=== PATIENT | male | born 1950 ===

== ENCOUNTER 2023-05-07 17:01 | Inpatient (IN) | payer OTHER, SELFPAY ==
--- NOTE | ~2023-05-07 | CT_ITS ---
EXAMINATION: Head strike, confusion. TECHNIQUE: 5 mm thin axial and reformatted 2 mm thin sagittal and coronal images of brain were obtained. Subsequently axial 3 mm thin and reformatted 2 mm thin sagittal and coronal images of cervical spine were obtained. DLP [id number]. This CT examination was performed using dose optimization technique as appropriate, variously including the following: Automated exposure control Adjustment of MA and/or KV according to patient size(this includes techniques or standardized protocols for targeted exams where dose is matched to indication/reason for exam; extremities or head. Use of iterative reconstruction techniques. FINDINGS: Brain: There is no acute intra-axial, extra-axial bleed, masses or midline shift. There is no acute infarction in evolution. There is no edema. The scott to white matter differentiation is maintained normal. The lateral ventricles are symmetrical in size and configuration with mild enlargement. The scott to white matter differentiation is maintained normal. Bone windows reveal no calvarial abnormality. There is no scalp soft tissue abnormality. Bilateral paranasal sinuses and mastoid air cells are well-aerated. Cervical spine: There is normal cervical lordosis. There is mild dextroscoliosis of cervical spine. The vertebral heights and alignment is normal. There is loss of C5-C6 and C6-C7 disc heights with mild ventral and moderate posterior spondylosis. The craniovertebral junction and C1-C2 alignment is normal. There is no acute fracture, dislocation or subluxation seen. The prevertebral and paravertebral soft tissues are normal. There is a calcified right thyroid large mass/nodule measuring 3.0 x 1.6 cm and 1.4 cm calcified nodule left thyroid lobe. The tracheal airway is widely patent. The lung apices are clear. CT/CT cervical spine wo IV con IMPRESSION: 1. No acute intracranial process seen. 2. There is no acute fracture, dislocation or subluxation of cervical spine. There is mild dextroscoliosis. There are degenerative disc changes C5-C6 and C6-C7 disc levels with mild ventral and moderate posterior spondylosis. 3. There is a right thyroid large calcified mass/nodule measuring 3.0 x 1.6 cm and 1.4 cm calcified nodule in left thyroid lobe. Correlate with outpatient ultrasound
--- NOTE | ~2023-05-07 | XR_ITS ---
EXAMINATION: XR CHEST CLINICAL INFORMATION: Cough. COMPARISON: None available. TECHNIQUE: 2 views of the chest were obtained. FINDINGS: Hyperinflated lungs without acute process. Heart size and pulmonary vascularity is normal. No gross bony abnormality seen. XR/XR chest 2V IMPRESSION: Hyperinflated lungs without acute process.
[2023-05-07 17:21] VITALS: BP 120/72; BP 139/86; PULSE 90; PULSE 91; RESP 16; TEMP 36.9; O2SAT 97; O2SAT 98; BMI 18.6
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
--- NOTE | 2023-05-07 18:02 | PC.NURSE ---
20gIV placed in the right forearm- labs obtained/sent to lab. pt provided w/ urinal so urine sample can be obtained. resting comfortably in no apparent distress. respirations remain even and unlabored. call clay placed within reach.
[2023-05-07 18:09] LABS: MANUAL DIFF FLAG NO
--- NOTE | 2023-05-07 18:09 | PC.NURSE ---
pt to CT at this time.
[2023-05-07 18:13] LABS: Basophils Percent Auto 0.6 % (0-2); Eosinophils Absolute Auto 0.1 X10*3/uL (0.0-0.4); Eosinophils Percent Auto 1.1 % (0-4); Hematocrit 36.9 % (42.0-52.0); Hemoglobin 12.1 g/dl (14.0-18.0); Imm Gran Abs Auto 0.06 X10*3/uL (0.00-0.03); Imm Gran Pct Auto 0.9 % (0.0-0.4); Lymphocytes Absolute Auto 1.3 X10*3/uL (1.2-4.9); Lymphocytes Percent Auto 19.5 % (20-40); Mean Corpuscular HGB Conc 32.8 g/dl (31.0-36.0); Mean Corpuscular Hemoglobin 29.1 pg (27.0-33.0); Mean Corpuscular Volume 88.7 fL (80.0-98.0); Monocytes Absolute Auto 0.6 X10*3/uL (0.1-1.2); Monocytes Percent Auto 9.1 % (2-11); Neutrophils Absolute Auto 4.4 x10*3/uL (2.0-8.3); Neutrophils Percent Auto 68.8 % (45-73); Platelet Count 193 X10*3/uL (160-400); Red Blood Count 4.16 X10*6/uL (4.60-5.80); Red Cell Distribution Width 14.1 % (11.0-16.0); White Blood Count 6.5 X10*3/uL (4.8-10.8)
[2023-05-07 18:18] LABS: Ammonia 32 umol/L (13-55)
[2023-05-07 18:29] LABS: Alanine Aminotransferase 18 U/L (0-40); Albumin Level 3.8 g/dL (3.5-5.0); Alkaline Phosphatase 76 U/L (39-117); Anion Gap 15 (12-20); Aspartate Amino Transferase 21 U/L (5-37); Bilirubin Direct 0.1 mg/dL (0.0-0.5); Bilirubin Total 0.3 mg/dL (0.0-1.0); Blood Urea Nitrogen 17 mg/dL (9-16); Calcium 9.3 mg/dL (8.4-10.2); Carbon Dioxide 23 mmol/L (22-29); Chloride 108 mmol/L (96-108); Estimated Glomerular Filt Rate > 60; Ethanol < 10 mg/dL; Glucose Random 138 mg/dL (60-115); Potassium 3.9 mmol/L (3.3-5.1); Sodium 142 mmol/L (135-145); Total Protein 7.1 g/dL (6.5-8.0)
[2023-05-07 18:31] LABS: B Type Natriuretic Peptide 129 pg/mL (<100)
[2023-05-07 18:41] LABS: COVID-19 Test Negative (Negative); IDNOW Serial# 08D9AD1C; IDNOW Serial# 152EDE1D; Influenza A Negative (Negative); Influenza B2 Negative (Negative)
[2023-05-07 20:52] LABS: Appearance Urine Cloudy; Color Urine Yellow; Glucose Urine UA Negative (Negative); Leukocyte Esterase Urine Large (3+) (Negative); Nitrite Urine Negative (Negative); Specific Gravity - Urine 1.015 (1.005-1.025); UMIC TRIGGER UACC YES; Urine Blood Trace (Negative); Urine Ketones Negative (Negative); Urine Protein Trace mg/dL (Neg-Trace)
[2023-05-07 20:54] LABS: Bacteria Urine 4+ (None Seen); Hyaline Casts Urine 0-2 /LPF (0-2); RBC Urine 0-2 /HPF (0-2); Squamous Epithelial Cell Urine 0-2 /HPF (0-2); UACC Culture Trigger YES; WBC Urine >50 /HPF (0-5)
[2023-05-07 21:08] LABS: Amphetamine Screen Urine Not Detected (Not Detect); Barbiturates, Urine Not Detected (Not Detect); Benzodiazepines Screen Urine Not Detected (Not Detect); Cannabinoid Screen Urine Not Detected (Not Detect); Cocaine Screen Urine Not Detected (Not Detect); Fentanyl, urine Not Detected (Not Detect); Opiate Screen Urine Not Detected (Not Detect); Phencyclidine Screen Urine Not Detected (Not Detect)
[2023-05-07] MEDS: cefuroxime axetiL 500 MG TABLET PO (21:24)
--- NOTE | 2023-05-07 21:35 | PC.NURSE ---
pt refusing to change into hospital gown. has been changed into gown x2 by this rn. continues to change back into shirt from home
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
[2023-05-07] MEDS: cefTRIAXone sodium 1 GM in 0.9 % Sodium Chloride 50 ML IV (22:02)
[2023-05-07 22:05] VITALS: BP 112/70; PULSE 88; RESP 16; TEMP 36.7; O2SAT 99
[2023-05-07] MEDS: Enoxaparin Sodium 40 MG/0.4 ML SYRINGE SUBCUT (22:35)
[2023-05-07] MEDS: Lidocaine 4 % Patch ADH..PATCH 1 PATCH TRANSDERMA (22:36)
[2023-05-07] MEDS: Acetaminophen 325 MG TABLET 650 MG PO (22:36)
[2023-05-07] MEDS: 0.9 % Sodium Chloride Flush 3 ML SYRINGE IVFLUSH (22:36)
--- NOTE | 2023-05-07 23:00 | PC.NURSE ---
pt calm and cooperative medicated according to mar. pending admission
[2023-05-08 01:08] VITALS: BP 101/57; PULSE 57; RESP 16; TEMP 37.1; O2SAT 96; BMI 18.3
[2023-05-08 03:14] VITALS: BP 124/68; PULSE 63; RESP 14; TEMP 36.1; O2SAT 97
[2023-05-08 06:03] LABS: MANUAL DIFF FLAG NO
[2023-05-08 06:21] LABS: Anion Gap 16 (12-20); Blood Urea Nitrogen 18 mg/dL (9-16); Calcium 9.3 mg/dL (8.4-10.2); Carbon Dioxide 24 mmol/L (22-29); Chloride 108 mmol/L (96-108); Creatinine Clr Calc Pharmacy 54.9; Estimated Glomerular Filt Rate > 60; Glucose Random 86 mg/dL (60-115); Potassium 3.8 mmol/L (3.3-5.1); Sodium 144 mmol/L (135-145)
[2023-05-08 06:34] LABS: Basophils Absolute Auto 0.1 X10*3/uL (0.0-0.2); Basophils Percent Auto 0.8 % (0-2); Eosinophils Absolute Auto 0.1 X10*3/uL (0.0-0.4); Eosinophils Percent Auto 1.9 % (0-4); Hematocrit 39.8 % (42.0-52.0); Hemoglobin 12.8 g/dl (14.0-18.0); Imm Gran Abs Auto 0.04 X10*3/uL (0.00-0.03); Imm Gran Pct Auto 0.5 % (0.0-0.4); Lymphocytes Absolute Auto 2.4 X10*3/uL (1.2-4.9); Lymphocytes Percent Auto 32.2 % (20-40); Mean Corpuscular HGB Conc 32.2 g/dl (31.0-36.0); Mean Corpuscular Volume 90.2 fL (80.0-98.0); Mean Platelet Volume 9.4 fL (9.4-12.4); Monocytes Absolute Auto 0.7 X10*3/uL (0.1-1.2); Monocytes Percent Auto 9.2 % (2-11); Neutrophils Percent Auto 55.4 % (45-73); Platelet Count 214 X10*3/uL (160-400); Red Blood Count 4.41 X10*6/uL (4.60-5.80); Red Cell Distribution Width 14.3 % (11.0-16.0); White Blood Count 7.3 X10*3/uL (4.8-10.8)
[2023-05-08 07:21] VITALS: BP 108/56; PULSE 8; RESP 18; TEMP 36.8; O2SAT 95
[2023-05-08 07:59] LABS: TSH reflex Free T4 0.73 uIU/mL (0.32-4.0)
[2023-05-08] MEDS: 0.9 % Sodium Chloride Flush 3 ML SYRINGE IVFLUSH ×2 (08:12→15:47)
[2023-05-08] MEDS: Lidocaine 4 % Patch ADH..PATCH 1 PATCH TRANSDERMA (08:12)
[2023-05-08] MEDS: Acetaminophen 325 MG TABLET 650 MG PO (08:12)
[2023-05-08 08:22] VITALS: PULSE 67; O2SAT 96
--- NOTE | 2023-05-08 09:06 | HO.PM.IMPN ---
Subjective Subjective Date of Service: 05/08/23 Interval History: urinary frequency Physical Exam Vital Signs: Vital Signs: Last Vital Signs Temp 98.2 F 05/08/23 07:21 Pulse 67 05/08/23 08:22 Resp 18 05/08/23 07:21 BP 108/56 L 05/08/23 07:21 Pulse Ox 96 05/08/23 08:22 O2 Del Method Room Air 05/08/23 08:22 BMI result Body Mass Index 18.3 General: AO X 3, no acute distress Resp: CTA bilateral, no accessory muscles used CVS: S1,S2,RRR GI: soft, non tender, non distended Neuro: motor grossly intact, alert Psych: appropriate affect, appropriate insight Objective Data Active Medications Acetaminophen (Acetaminophen 325 Mg Tablet) 650 mg PO Q6H PRN PRN Reason: Pain, Mild (Pain Scale 1-3) Last Admin: 05/08/23 08:12 Dose: 650 mg Documented By: MARICRUZ Enoxaparin Sodium (Enoxaparin Sodium 40 Mg/0.4 Ml Syringe) 40 mg SUBCUT Q24H [facility] Last Admin: 05/07/23 22:35 Dose: 40 mg Documented By: SANDRO Ceftriaxone Sodium 1 gm/ (Sodium Chloride) 50 mls @ 100 mls/hr IV Q24H [facility] Last Infusion: 05/07/23 22:36 Dose: Infused Documented By: SANDRO Lidocaine (Lidocaine 4 % Patch Adh..Patch) 1 patch TRANSDERMA DAILY [facility]; Protocol Last Admin: 05/08/23 08:12 Dose: 1 patch Documented By: MRAICRUZ Melatonin (Melatonin 3 Mg Tablet) 6 mg PO BEDTIME PRN PRN Reason: Insomnia Ondansetron HCl (Ondansetron Hcl 4 Mg/2 Ml Vial) 4 mg IVPUSH Q8H PRN PRN Reason: Nausea and Vomiting Sodium Chloride (0.9 % Sodium Chloride Flush 3 Ml Syringe) 3 ml IVFLUSH QSHIFT [facility] Last Admin: 05/08/23 08:12 Dose: 3 ml Documented By: MARICRUZ Labs 05/08/23 05:43 05/08/23 05:43 Labs: Laboratory Results - last 24 hr 05/07/23 05/07/23 05/08/23 18:02 20:43 05:43 MCV 88.7 90.2 MCH 29.1 29.0 MCHC 32.8 32.2 RDW 14.1 14.3 Plt Count 193 214 MPV 9.0 L 9.4 Immature Gran % (Auto) 0.9 H 0.5 H Neut % (Auto) 68.8 55.4 Lymph % (Auto) 19.5 L 32.2 Dixie % (Auto) 9.1 9.2 Eos % (Auto) 1.1 1.9 Baso % (Auto) 0.6 0.8 Lymph # (Auto) 1.3 2.4 Dixie # (Auto) 0.6 0.7 Eos # (Auto) 0.1 0.1 Baso # (Auto) 0.0 0.1 Abs Immat Gran (auto) 0.06 H 0.04 H Absolute Neuts (auto) 4.4 4.0 Absolute Nucleated RBC 0.000 0.000 Nucleated RBC % (auto) 0.0 0.0 Anion Gap 15 16 Estim Creat Clear Calc 61.0 54.9 Estimated GFR > 60 > 60 Random Glucose 138 H 86 Calcium 9.3 9.3 Total Bilirubin 0.3 Direct Bilirubin 0.1 AST 21 ALT 18 Alkaline Phosphatase 76 Ammonia 32 B-Natriuretic Peptide 129 H Total Protein 7.1 Albumin 3.8 TSH 0.73 Urine Color Yellow Urine Appearance Cloudy Urine pH 7.0 Ur Specific [place] 1.015 Urine Protein Trace Urine Glucose (UA) Negative Urine Ketones Negative Urine Blood Trace H Urine Nitrite Negative Ur Leukocyte Esterase Large (3+) H Urine RBC 0-2 Urine WBC >50 H Ur Squamous Epith Cells 0-2 Urine Bacteria 4+ Hyaline Casts 0-2 Urine Opiates Screen Not Detected Urine Fentanyl Screen Not Detected Ur Barbiturates Screen Not Detected Ur Phencyclidine Scrn Not Detected Ur Amphetamines Screen Not Detected U Benzodiazepines Scrn Not Detected Urine Cocaine Screen Not Detected U Marijuana (THC) Screen Not Detected Ethyl Alcohol < 10 COVID-19 (COLBY) Negative COVID-19 Clin Com See Note Influenza Type A (BERNICE) Negative Influenza Type B (BERNICE) Negative Influenza A & B Note See Note Assessment and Plan (1) Acute UTI: Status: Acute Plan 72M PMH cad, mood disorder presented with urinary frequency, confusion acute metabolic encephalopathy due to UTI rocephin, follow up cultures cad, mood disorder awaiting home med confirmation thyroid mass tsh normal outpatinet homelessness case management eval dvt prophylaxis - lovenox full code reason for continued hospitalization:awaiting cultures Quality Stroke Does the patient have a stroke diagnosis?: No VTE Prior VTE?: No VTE Risk Level:: Medical - moderate - high VTE Device Contraindication: Treatment Not Indicated VTE Drug Contraindication: N/A - Med Ordered
--- NOTE | 2023-05-08 09:54 | MHC.CM.PN ---
pt is homeless ,called [facility] at the [facility] verified pt is service connected will call [facility] to help find [facility] for pt
--- NOTE | 2023-05-08 11:30 | PC.NURSE ---
pt. still in street clothing, refused thorough skin assessment, stated his skin is fine.
[2023-05-08 13:59] VITALS: BMI 18.3
--- NOTE | 2023-05-08 14:08 | MHC.CLN ---
NUTRITION DIET=REGULAR. REPORTED POOR PO PRIOR TO ADMIT. WILL ADD MAGIC CUP BID TO INCREASE CALORIC INTAKE. PROVIDES 580 KCALS, 18 G PROTEIN. PATIENT IS UNDERWEIGHT, BMI=18.3 AND IS 78% OF IBW. FOLLOW FOR INTAKE. SEE CLINICAL NUTRITION ASSESSMENT 05/08/23.
[2023-05-08 16:00] VITALS: BP 110/62; PULSE 68; RESP 16; TEMP 36.7; O2SAT 96
[2023-05-08 20:00] VITALS: BP 123/82; PULSE 64; RESP 16; TEMP 36.8; O2SAT 97
[2023-05-08] MEDS: cefTRIAXone sodium 1 GM in 0.9 % Sodium Chloride 50 ML IV (21:39)
[2023-05-08] MEDS: Enoxaparin Sodium 40 MG/0.4 ML SYRINGE SUBCUT (21:41)
[2023-05-09 04:00] VITALS: BP 106/58; PULSE 53; RESP 16; TEMP 36.3; O2SAT 96
[2023-05-09 08:00] VITALS: BP 121/73; PULSE 54; RESP 18; TEMP 36.5; O2SAT 95
[2023-05-09] MEDS: Acetaminophen 325 MG TABLET 650 MG PO (08:44)
[2023-05-09] MEDS: Lidocaine 4 % Patch ADH..PATCH 1 PATCH TRANSDERMA (08:45)
[2023-05-09] MEDS: 0.9 % Sodium Chloride Flush 3 ML SYRINGE IVFLUSH (08:46)
[2023-05-09] MEDS: Aspirin Enteric Coated 81 MG TABLET.DR PO (08:52)
--- NOTE | 2023-05-09 09:12 | P.PNIM_ITS ---
Subjective Subjective Date of Service: 05/09/23 Interval History: urinary frequency Physical Exam 2 Vital Signs: Vital Signs: Last Vital Signs Temp 97.7 F 05/09/23 08:00 Pulse 54 05/09/23 08:00 Resp 18 05/09/23 08:00 BP 121/73 05/09/23 08:00 Pulse Ox 95 05/09/23 08:00 O2 Del Method Room Air 05/09/23 08:00 BMI result Body Mass Index 18.3 General: AO X 3, no acute distress Resp: CTA bilateral, no accessory muscles used CVS: S1,S2,RRR GI: soft, non tender, non distended Neuro: motor grossly intact, alert Psych: appropriate affect, appropriate insight Objective Data Active Medications Acetaminophen (Acetaminophen 325 Mg Tablet) 650 mg PO Q6H PRN PRN Reason: Pain, Mild (Pain Scale 1-3) Last Admin: 05/09/23 08:44 Dose: 650 mg Documented By: MARICRUZ Aspirin (Aspirin Enteric Coated 81 Mg Tablet.) 81 mg PO DAILY [facility] Last Admin: 05/09/23 08:52 Dose: 81 mg Documented By: MARICRUZ Atorvastatin Calcium (Atorvastatin Calcium 80 Mg Tablet) 80 mg PO BEDTIME [facility] Enoxaparin Sodium (Enoxaparin Sodium 40 Mg/0.4 Ml Syringe) 40 mg SUBCUT Q24H [facility] Last Admin: 05/08/23 21:41 Dose: 40 mg Documented By: FAISAL Ceftriaxone Sodium 1 gm/ (Sodium Chloride) 50 mls @ 100 mls/hr IV Q24H [facility] Last Infusion: 05/08/23 22:33 Dose: Infused Documented By: FAISAL Lidocaine (Lidocaine 4 % Patch Adh..Patch) 1 patch TRANSDERMA DAILY [facility]; Protocol Last Admin: 05/09/23 08:45 Dose: 1 patch Documented By: MARICRUZ Melatonin (Melatonin 3 Mg Tablet) 6 mg PO BEDTIME PRN PRN Reason: Insomnia Ondansetron HCl (Ondansetron Hcl 4 Mg/2 Ml Vial) 4 mg IVPUSH Q8H PRN PRN Reason: Nausea and Vomiting Sodium Chloride (0.9 % Sodium Chloride Flush 3 Ml Syringe) 3 ml IVFLUSH QSHIFT [facility] Last Admin: 05/09/23 08:46 Dose: 3 ml Documented By: HO.MOHAMER Labs 05/08/23 05:43 05/08/23 05:43 Microbiology Microbiology Results: Microbiology 05/07/23 20:56 Urine Culture - Final Urine clean catch - Urine scott top Serratia marcescens 05/07/23 21:54 Blood Culture - Preliminary Blood - Arterial No growth after 24 hours. 05/07/23 21:58 Blood Culture - Preliminary Blood - Arterial No growth after 24 hours. Assessment and Plan (1) Acute UTI: Status: Acute Plan 72M PMH cad, mood disorder presented with urinary frequency, confusion acute metabolic encephalopathy due to UTI rocephin, urine grew serratia cad, mood disorder awaiting home med confirmation will start on asa and lipirot in meantime thyroid mass tsh normal outpatinet homelessness case management eval dvt prophylaxis - lovenox full code reason for continued hospitalization: safe dispo Quality Stroke Does the patient have a stroke diagnosis?: No VTE Prior VTE?: No VTE Risk Level:: Medical - moderate - high VTE Device Contraindication: Treatment Not Indicated VTE Drug Contraindication: N/A - Med Ordered
--- NOTE | 2023-05-09 10:28 | PHA.MEDREC ---
Pharmacy Consult ? Medication Reconciliation Pharmacy has completed the medication reconciliation, [facility]
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
--- NOTE | 2023-05-09 13:36 | PC.NURSE ---
Pt. room smell like cigarette, pt. 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 Pt. was offered Nicotine gum and or patch but he refused and stated he was ready to be discharged. Dr. Taylor was notified and at bed side.
--- NOTE | 2023-05-09 13:51 | MHC.CM.PN ---
pt dcd does not want rehab per md pt is competent to make that decision
== END 2023-05-09 14:31 | disposition home or self-care (01) | DRG 689 ==
LOC: HO.ED 21:33 → HO.EDOVER 21:53 → HO.S3 23:24
PROVIDERS: Physician Assistant Medical; Admitting Provider Student in an Organized Health Care Education/Training Program; Emergency Provider Internal Medicine; Visit Provider Internal Medicine
DX: N39.0 Urinary tract infection, site not specified (principal); G93.41 Metabolic encephalopathy; Z59.02 Unsheltered homelessness; E07.9 Disorder of thyroid, unspecified; G44.309 Post-traumatic headache, unspecified, not intractable; F39 Unspecified mood [affective] disorder; I25.10 Atherosclerotic heart disease of native coronary artery without angina pectoris; B96.89 Other specified bacterial agents as the cause of diseases classified elsewhere; F17.210 Nicotine dependence, cigarettes, uncomplicated; Z95.5 Presence of coronary angioplasty implant and graft; Z20.822 Contact with and (suspected) exposure to COVID-19; Z71.6 Tobacco abuse counseling; Z87.440 Personal history of urinary (tract) infections; Z79.02 Long term (current) use of antithrombotics/antiplatelets; Z79.82 Long term (current) use of aspirin; Z79.899 Other long term (current) drug therapy
CPT/HCPCS: 36415; 70450; 71046; 72125; 80048; 80076; 80307; 81001; 82140; 83880; 84443; 85025; 87040; 87086; 87088; 87186; 87502; 87635; 99285; J0696; J1650

== ENCOUNTER → 2023-05-07 21:34 | Outpatient (BNV) | payer OTHER, SELFPAY | PROVIDERS: Admitting Provider Student in an Organized Health Care Education/Training Program; Emergency Provider Internal Medicine; Visit Provider Student in an Organized Health Care Education/Training Program | DX: N39.0 Urinary tract infection, site not specified (principal) | CPT/HCPCS: 99222; 99232; 99238 ==

== ENCOUNTER 2023-05-09 16:40 | Emergency (ER) | payer OTHER, SELFPAY ==
[2023-05-09 16:56] VITALS: BP 167/92; PULSE 77; RESP 18; TEMP 36.8; O2SAT 97
--- NOTE | 2023-05-09 16:59 | ED.GENADULT ---
HPI - General Adult General Chief complaint: General Medical Stated complaint: lower back pain Time Seen by Provider: 05/09/23 18:31 Source: patient Mode of arrival: ambulatory Limitations: no limitations History of Present Illness HPI narrative: 72-year-old male with history of coronary disease status post stenting, mood disorder presents to the ER seeking to speak to a social media designer. Patient was admitted to this facility May 07 May 09 for urinary tract infection and concern for metabolic encephalopathy. On discharge his mental status was improved and the hospital staff felt that he had capacity to make his own medical decisions. Was offered short-term rehab but he declined this. He was also offered additional [facility] services which she declined. Patient reports he was discharged. He is currently homeless. He started walking and became lost prompting him to return to the emergency room. He tells me he would like to speak to a social media designer. He would like to get to the [facility] so that he can take the computer train to [facility] or his belongings are in a locker. He does not have any money. He does not have any friends he can call. He does have a computer pass for [employer] but does not have any [employer] tickets. He does also have a bus pass. He reports lower back pain from walking. No known injuries or fall. No radiation of pain. No bowel or bladder incontinence. No numbness in the groin. No fevers or chills. Patient is ambulatory Related Data Home Medications Medication Instructions Recorded Confirmed acetaminophen 500 mg tablet 1,000 mg PO Q8H PRN backache 05/09/23 05/09/23 aspirin 81 mg tablet,delayed 81 mg PO DAILY 05/09/23 05/09/23 release clopidogrel 75 mg tablet 75 mg PO DAILY 05/09/23 05/09/23 ibuprofen 400 mg tablet 400 mg PO BIDWM PRN Pain 05/09/23 05/09/23 lidocaine 5 % topical patch 1 patch topical DAILY 05/09/23 05/09/23 loratadine 10 mg tablet 10 mg PO DAILY 05/09/23 05/09/23 nicotine (polacrilex) 2 mg buccal 2 mg buccal Q4H PRN cravings 05/09/23 05/09/23 lozenge nicotine 14 mg/24 hr daily 1 patch transdermal DAILY 05/09/23 05/09/23 transdermal patch rosuvastatin 10 mg tablet 10 mg PO DAILY 05/09/23 05/09/23 sertraline 100 mg tablet 250 mg PO DAILY 05/09/23 05/09/23 tiotropium bromide 18 mcg capsule 1 cap inhalation DAILY 05/09/23 05/09/23 with inhalation device trazodone 100 mg tablet 100 mg PO BEDTIME 05/09/23 05/09/23 white petrolatum-mineral oil 1 appl topical BID PRN irritated 05/09/23 05/09/23 topical cream skin Previous Rx's Medication Instructions Recorded cefuroxime axetil 500 mg tablet 500 mg PO BID #6 tabs 05/09/23 Allergies Allergy/AdvReac Type Severity Reaction Status Date / Time No Known Allergies Allergy Verified 05/07/23 17:45 Review of Systems Review of Systems: Yes all other systems are reviewed and are negative Constitutional: Constitutional: Reports no additional constitutional complaints, Denies body ache(s), Denies chills, Denies fever(s), Denies headache(s) and Denies weakness Eyes: Eyes: Reports no additional eye complaints and Denies change in vision ENT: Reports system reviewed and no additional complaints, except as documented, Denies dizziness, Denies headache(s), Denies nasal congestion, Denies nasal discharge and Denies neck pain Cardiovascular: Cardiovascular: Reports no additional cardiovascular complaints, Denies chest pain, Denies leg edema and Denies dyspnea Respiratory: Respiratory: Reports no additional respiratory complaints, Denies cough and Denies dyspnea Gastrointestinal: Gastrointestinal: Reports no additional gastrointestinal complaints, Denies abdominal pain, Denies diarrhea, Denies nausea and Denies vomiting Genitourinary: Genitourinary: Denies urinary incontinence Musculoskeletal: Musculoskeletal: Reports no additional musculoskeletal complaints, Reports back pain, Denies arthralgias, Denies joint swelling, Denies neck pain, Denies numbness and Denies tingling Integumentary/Breasts: Skin/Breast: Reports system reviewed and no additional complaints, except as docu and Denies rash Neurologic: Reports system reviewed and no additional complaints, except as documented, Denies Abnormal speech present, Denies dizziness, Denies headache(s), Denies numbness, Denies tingling and Denies weakness PMF Past Medical History Attestation statement: The following information was validated with the patient. Source: old records reviewed and nursing notes reviewed Medical History Mood disorder Coronary artery disease Social History Social History Household Members: Other Housing: Homeless Do you presently have visiting nurse or other home services: No Comment: pt. refused bed alarm Patient Tobacco Use Status: Current everyday Tobacco user Tobacco use type: Cigarette Cigarettes Per Day: 10 e-Cigarette/Vaping Use: Never Used Second Hand Smoke Exposure: No service: Yes Physical Exam ED Vital Signs: Vital Signs - 24 hr 05/09/23 16:56 Temperature 98.3 F Pulse Rate 77 Respiratory Rate 18 Blood Pressure 167/92 H Pulse Oximetry 97 Oxygen Delivery Method Room Air BMI result Body Mass Index 20.0 Const General: cooperative, healthy appearing, comfortable and no acute distress Orientation/consciousness: patient oriented x3 Limitations: no limitations HENMT Head: Yes normal to inspection Ears: hearing grossly normal bilaterally General nose exam: Normal external nose present Face and sinus: Yes normal facial exam Mouth: Normal oral and palatal mucosa present Throat: Yes posterior oropharynx normal Eyes General: appearance normal, both eyes and all related structures Pupils: Equal, round and reactive pupils present Neck Neck: Yes normal visual inspection Chest Chest palpation & inspection: normal inspection of the chest Resp Effort & Inspection: normal respiratory effort Auscultation: clear to auscultation bilaterally Cardio Rate: regular rate Rhythm: regular rhythm Peripheral pulses: Peripheral pulses 2+ throughout GI Inspection: Yes normal to inspection Palpation (GI): Soft to palpation and nontender Auscultation: normal bowel sounds General: Yes no CVA tenderness Back/Spine/Pelvis Back: no CVA tenderness Thoracic/Lumbar Spine: thoracic and lumbar spine normal to inspection Skin General skin exam: no rashes or lesions noted Neuro General: patient oriented x3, moves all extremities, no focal motor deficits and normal sensation to monofilament Cranial nerves: Yes Equal, round and reactive pupils present Cognition (Neuro): normal cognition Speech: No Abnormal speech present Gait exam (Neuro): Normal gait present Motor exam (neuro): 5/5 motor strength present throughout Sensory Exam: Normal double simultaneous stimulation for sensation Extrem General: Yes normal to inspection Course Course Course Narrative: This is a rapid medical exam. Defer additional HPI, ROS, PE to primary provider. 72 year old male who was discharged from this facility after being admitted for UTI, encephalopathy metabolic cause presents here needing social media designer, was discharged and got lost. Wants to get back to [place] but has no means to get there as he is homeless. Wants to get to the commuter lot so he can take transport to [place]. He started walking towards [place] but got lost. Order for CM placed VSS Medical Decision Making Medical Decision Making MDM Narrative: 72-year-old male with history of coronary disease status post stenting, mood disorder presents to the ER seeking to speak to a social media designer. Patient was admitted to this facility May 07 May 09 for urinary tract infection and concern for metabolic encephalopathy. On discharge his mental status was improved and the hospital staff felt that he had capacity to make his own medical decisions. Was offered short-term rehab but he declined this. He was also offered additional [facility] services which she declined. Patient reports he was discharged. He is currently homeless. He started walking and became lost prompting him to return to the emergency room. He tells me he would like to speak to a social media designer. He would like to get to the [facility] so that he can take the computer train to [facility] or his belongings are in a locker. He does not have any money. He does not have any friends he can call. He does have a computer pass for [place] but does not have any [employer] tickets. He does also have a bus pass. He reports lower back pain from walking. No known injuries or fall. No radiation of pain. No bowel or bladder incontinence. No numbness in the groin. No fevers or chills. Patient is ambulatory Normal neuro exam with no focal deficits. Likely lumbar strain Will place CM consultation Patient A&Ox4 and I believe he has capacity to make his own decisions Differential Diagnosis Differential Diagnoses: The differential diagnosis associated with the presentation includes homelessness lumbar strain No reports of trauma to suggest fracture and need for x-rays No focal deficits or red flag symptoms gradual onset of symptoms to suggest epidural abscess, epidural hematoma, malignancy, cord compression, cauda equina, ACS, AAA Admission/Observation Consideration of admission/observation: Escalation of care including admission/observation considered Patient up and ambulatory with a normal neuro exam. No need for emergent MRI and or are surgery consultation and transfer to tertiary care center Consult Healthcare Provider Management of the patient was discussed with: Resident Inspector Patient met with our rn case manager hospice in the emergency room-will be discharged Tests considered The following testing was considered but not selected: See discussion Prescription Management I considered prescription management with: Pain Medication Discharge Plan Discharge Clinical Impression: Back pain Patient Disposition: Home, Self-Care Instructions: Chronic Back Pain (DC) Additional Instructions: Take the antibiotic as prescribed from your last discharge Prescriptions: No Action nicotine 14 mg/24 hr Patch 24 Hour 1 patch TRANSDERMAL DAILY sertraline 100 mg Tablet 250 mg PO DAILY clopidogrel 75 mg Tablet 75 mg PO DAILY aspirin 81 mg Tablet,Delayed Release (Dr/Ec) 81 mg PO DAILY acetaminophen 500 mg Tablet 1,000 mg PO Q8H PRN (Reason: backache) trazodone 100 mg Tablet 100 mg PO BEDTIME lidocaine 5 % Adhesive Patch,Medicated 1 patch TOPICAL DAILY Rx Instructions: leave on most painful area for up to 12 hrs ibuprofen 400 mg Tablet 400 mg PO BIDWM PRN (Reason: Pain) loratadine 10 mg Tablet 10 mg PO DAILY white petrolatum-mineral oil Cream 1 appl TOPICAL BID PRN (Reason: irritated skin) nicotine (polacrilex) 2 mg Lozenge 2 mg BUCCAL Q4H PRN (Reason: cravings) rosuvastatin 10 mg Tablet 10 mg PO DAILY tiotropium bromide 18 mcg Capsule, W/Inhalation Device 1 cap INHALATION DAILY Rx Instructions: puncture 1 cap using device; one dose = 2 inhalations cefuroxime axetil 500 mg tablet 500 mg PO BID Qty: 6 0RF
--- NOTE | 2023-05-09 18:49 | MHC.CM.ED ---
CM met with patient at the request of Deanna CHRISTOPHER. Pt was [place] today [place] [facility] admitted from 05/07-05/09 for a UTI. Earlier today patient was offered STR and assistance to apply for [place] on. Pt refused at that time. Pt tells CM that he has a bus pass, but decided to walk to [place] today, got lost, got dark and cold and came back to [facility] [place]. Requesting lidocaine patch for his back. Provider aware. Pt tells CM that he is homeless. States he has no friends or family and family has disowned him. Pt states he has tried in the past for help from [facility], but it never works out. CM called [facility] and spoke with intake person, Juan Ramon Lyon ([phone]). Juan Ramon explained referral process and directed CM to website to complete a referral form. Stated he could not offer any assistance tonight. Pt has declined assistance with completing referral form for [facility]. Pt is requesting to stay in ED waiting room or given transportation to the [place] bus station. Pt plans to take a bus to [place] from there. Pt states his belongings are in a locker in the [facility]. CM spoke with provider. Pt will be discharged. Pt will remain in waiting room overnight, as there are no long-term beds at this time. Pt has not eaten today. Given sandwich and soda. Pt is aware that disruptive behavior will not be tolerated and he will be asked to leave the premises. Provider is comfortable with plan. Pt does have his bus pass in his pocket.
== END 2023-05-09 19:00 | disposition home or self-care (01) ==
PROVIDERS: Emergency Provider Student in an Organized Health Care Education/Training Program
DX: M54.50 Low back pain, unspecified (principal); Z59.00 Homelessness unspecified
CPT/HCPCS: 99282